=== PATIENT | female | born 1990 | race African-American/Black ===

== ENCOUNTER 2017-07-09 17:06 | Emergency (ER) | payer BC, MEDICAID ==
[~2017-07-09] VITALS: Ht 162.6 cm; Wt 56.7 kg
--- NOTE | 2017-07-09 17:20 | NUR ---
PT CAME IN FOR LEFT FLANK PAIN, RADIATES TO THE HYPOGASTRIC AREA X 2 DAYS. SEEN BY MD FOR EVAL. VSS. SAFETY AND COMFORT MEASURES PROVIDED. WILL MONITOR.
--- NOTE | 2017-07-09 17:40 | NUR ---
IV ACCESS STARTED. BLOOD DRAWN FOR LABS.
[2017-07-09 17:54] LABS: BASOPHILS # (AUTO) 0.3 /CMM (0.0-0.2); BASOPHILS % (AUTO) 4.8 % (0.0-2.0); EOSINOPHILS % (AUTO) 2.8 % (0.0-6.0); HEMATOCRIT 36 % (33-45); HEMOGLOBIN 12.6 g/dL (11.5-14.8); LYMPHOCYTES # (AUTO) 1.8 /CMM (0.8-4.8); LYMPHOCYTES % (AUTO) 31.2 % (20.0-44.0); MEAN CORPUSCULAR HGB CONC 35 g/dl (31.0-36.0); MEAN CORPUSCULAR VOLUME 93 fL (82-100); MONOCYTES # (AUTO) 0.5 /CMM (0.1-1.30); MONOCYTES % (AUTO) 8.6 % (2.0-12.0); NEUTROPHILS % (AUTO) 52.6 % (43.0-81.0); PLATELET COUNT (AUTO) 230 /CMM (150-450); RDW COEFFICIENT OF VARIATION 12.1 (11.5-15.0); RED BLOOD CELL COUNT(AUTO) 3.91 MIL/uL (4.0-5.2); WHITE BLOOD COUNT (AUTO) 5.8 K/uL (4.3-11.0)
[2017-07-09 17:57] LABS: APPEARANCE,URINE Clear (CLEAR); BILIRUBIN,URINE Negative (NEGATIVE); BLOOD, URINE Negative Ery/uL (NEGATIVE); COLOR,URINE Yellow (YELLOW); KETONES,URINE Trace (NEGATIVE); LEUKOCYTE ESTERASE ,URINE Negative (NEGATIVE); NITRITE, URINE Negative (NEGATIVE); PH,URINE 5.5 (5.0-8.0); PROTEIN,URINE Trace mg/dl (NEGATIVE); UGLUCOSE Negative (NEGATIVE); UROBILINOGEN,URINE 0.2 EU/dL (0.2)
[2017-07-09 18:02] LABS: CALCIUM, SERUM 8.6 mg/dL (8.5-10.1); CREATININE 0.8 mg/dL (0.6-1.3); POTASSIUM 3.6 mmol/L (3.5-5.1)
[2017-07-09 18:07] LABS: ALBUMIN 3.8 g/dL (3.4-5.0); BILIRUBIN,DIRECT 0.1 mg/dL (0.0-0.2); BILIRUBIN,TOTAL 0.4 mg/dL (0.2-1.0); TOTAL PROTEIN, SERUM 7.5 g/dL (6.4-8.2)
[2017-07-09 18:10] LABS: BACTERIA,URINE Rare /HPF (None Seen); RBC,URINE NONE SEEN /HPF (0-2); SQUAMOUS EPITHELIAL CELL,UR Few /HPF (None Seen); WBC,URINE NONE SEEN /HPF (0-3)
--- NOTE | 2017-07-09 18:55 | NUR ---
CALLED LABS FOR RHOGRAM DRAW.
--- NOTE | 2017-07-09 21:30 | NUR ---
IV removed. Catheter intact and site benign. Pressure and 4x4 applied to site. No bleeding noted.
--- NOTE | 2017-07-09 21:35 | NUR ---
Patient discharged to home in stable condition. Written and verbal after care instructions given. Patient verbalizes understanding of instruction.
[2017-07-09 22:28] VITALS: BP 105/65
== END 2017-07-09 22:29 | disposition home or self-care (01) ==
LOC: ER 17:08
DX: O26.891 Other specified pregnancy related conditions, first trimester (principal); R10.9 Unspecified abdominal pain; Z3A.01 Less than 8 weeks gestation of pregnancy
CPT/HCPCS: 36415; 76805; 80048; 80076; 81001; 83690; 84702; 84703; 85025; 99285; A4606; Z7610; 81000-TC

== ENCOUNTER 2021-02-14 16:16 | Emergency (ER) | payer BC, MEDICAID ==
[~2021-02-14] VITALS: Ht 162.6 cm; Wt 54.9 kg
[2021-02-14 16:43] VITALS: BP 109/79
[2021-02-14] MEDS ORDERED: NAPR500T6 PO (17:01)
--- NOTE | 2021-02-14 17:13 | NUR ---
Patient discharged to home in stable condition. Written and verbal after care instructions given. Patient verbalizes understanding of instruction.
== END 2021-02-14 17:14 | disposition home or self-care (01) ==
LOC: ER 16:26
DX: G89.29 Other chronic pain (principal); M54.6 Pain in thoracic spine; Z76.0 Encounter for issue of repeat prescription; Z76.5 Malingerer [conscious simulation]